=== PATIENT | male | born 1985 | race Hispanic/Latino ===

== ENCOUNTER 2017-03-15 04:47 | Inpatient (IN) | payer OTHER ==
--- NOTE | 2017-03-15 05:04 | C.PDOC ---
History Of Present Illness pt presents with chest pressure while trying to sleep. Dull aching discomfort, tightness occasionally radiating to the left arm. Has had similar episodes thruout the last 2-3 years, but tonight was worse. Speaking in complete sentences. No f/c/n/v . Denies any drug use Time Seen by Provider: 03/15/17 05:03 Chief Complaint (Nursing): Chest Pain History Per: Patient History/Exam Limitations: no limitations Onset/Duration Of Symptoms: Hrs Current Symptoms Are (Timing): Still Present Context: Other Severity: Mild Pain Scale Rating Of: 3 Quality: Dull, Tightness, Pressure Associated Symptoms: denies: Nausea, Dyspnea Modifying Factors: None Exacerbating Factors: None Alleviating Factors: None Recent travel outside of the [place]: No Additional History Per: Patient Past Medical History Reviewed: Historical Data, Nursing Documentation, Vital Signs Vital Signs: Last Vital Signs Temp 97.8 F 03/15/17 04:55 Pulse 78 03/15/17 04:55 Resp 19 03/15/17 04:55 BP 114/72 03/15/17 04:55 Pulse Ox 98 03/15/17 05:50 Family History: States: No Known Family Hx - Social History Hx Alcohol Use: Yes Hx Substance Use: No - Immunization History Hx Tetanus Toxoid Vaccination: No Hx Influenza Vaccination: No Hx Pneumococcal Vaccination: No Review Of Systems Constitutional: Negative for: Fever, Chills Eyes: Negative for: Redness ENT: Negative for: Throat Pain Cardiovascular: Positive for: Chest Pain Respiratory: Negative for: Shortness of Breath Gastrointestinal: Negative for: Nausea, Vomiting, Abdominal Pain Genitourinary: Negative for: Dysuria Musculoskeletal: Negative for: Back Pain Skin: Negative for: Rash Neurological: Negative for: Weakness Psych: Negative for: Anxiety Physical Exam - Physical Exam Appears: Non-toxic, No Acute Distress Skin: Warm, Dry Head: Normacephalic Eye(s): bilateral: Normal Inspection, PERRL Oral Mucosa: Moist Neck: Supple Chest: Symmetrical Cardiovascular: Rhythm Regular Respiratory: No Rales, No Rhonchi, No Wheezing Gastrointestinal/Abdominal: Soft, No Tenderness, No Distention Back: No CVA Tenderness Extremity: Normal ROM Extremity: Bilateral: Atraumatic, No Pedal Edema, Normal Color And Temperature Pulses: Left Dorsalis Pedis: Normal, Right Dorsalis Pedis: Normal Neurological/Psych: Oriented x3, Normal Speech, Normal Cognition Gait: Steady ED Course And Treatment - Laboratory Results Result Diagrams: 03/15/17 05:31 03/15/17 05:31 ECG: Interpreted By Me, Viewed By Me ECG Rhythm: Sinus Rhythm (78), Nonspecific Changes O2 Sat by Pulse Oximetry: 98 Pulse Ox Interpretation: Normal - Radiology CXR: Interpreted by Me, Viewed By Me CXR Interpretation: No: Infiltrates, Fracture, Pnemothorax Disposition Discussed With DrEsperanza: Abdelrahman Batista Comment: accepted the pt on his service and took over the care at 6:23 AM Doctor Will See Patient In The: ED Counseled Patient/Family Regarding: Studies Performed, Diagnosis - Disposition Disposition: HOSPITALIZED Disposition Time: 06:19 Condition: FAIR Forms: [facility] ([place]) - POA Present On Arrival: None - Clinical Impression Clinical Impression: Chest pain, NSTEMI (non-ST elevated myocardial infarction) Decision To Admit - Pt Status Changed To: Hospital Disposition Of: Inpatient - Admit Certification Admit to Inpatient:: After my assessment, the patient will require hospitalization for at least two midnights. This is because of the severity of symptoms shown, intensity of services needed, and/or the medical risk in this patient being treated as an outpatient. - InPatient: Physician Admission Certification: I certify that this patient requires 2 or more midnights of care for the following reason:: After my assessment, the patient will require hospitalization for at least two midnights. This is because of the severity of symptoms shown, intensity of services needed, and/or the medical risk in this patient being treated as an outpatient. - . Bed Request Type: Telemetry Patient Diagnosis: Chest pain, NSTEMI (non-ST elevated myocardial infarction)
[2017-03-15] MEDS ORDERED: Aspirin 325 mg EC Tablets PO STA ×2 (05:18→15:57)
[2017-03-15 05:34] LABS: BASO % 0.5 % (0.0-2.0); EOS # 0.1 K/uL (0.0-0.7); EOS % 0.7 % (0.0-4.0); HEMOGLOBIN 15.6 g/dL (12.0-18.0); LYMPH # 1.7 K/uL (1.0-4.3); LYMPH % 19.9 % (20.0-40.0); MEAN CELL VOLUME 86.8 fL (80.0-94.0); MEAN CORPUSCULAR HEMOGLOBIN 30.7 pg (27.0-31.0); MEAN CORPUSCULAR HGB CONC 35.4 g/dL (33.0-37.0); MONO # 1.2 K/uL (0.0-0.8); MONO % 13.7 % (0.0-10.0); NEUT # 5.6 K/uL (1.8-7.0); NEUT % 65.2 % (50.0-75.0); NRBC % 0.2 % (0.0-2.0); RBC 5.09 Mil/uL (4.40-5.90); RED CELL DISTRIBUTION WIDTH 12.6 % (11.5-14.5); WHITE BLOOD COUNT 8.6 K/uL (4.8-10.8)
[2017-03-15 05:41] LABS: INR 1.1; PROTHROMBIN TIME 11.8 SECONDS (9.7-12.2)
[2017-03-15] MEDS ORDERED: Aspirin 325 mg EC Tablets PO ONE (05:45)
[2017-03-15 05:57] LABS: ALB/GLOB RATIO 1.4 (1.0-2.1); ALBUMIN 4.3 g/dL (3.5-5.0); ALT/SGPT 35 U/L (21-72); AST/SGOT 35 U/L (17-59); BLOOD UREA NITROGEN 15 mg/dL (9-20); GFR AFRICAN-AMERICAN > 60; GFR NON-AFRICAN AMERICAN > 60
[2017-03-15 07:07] LABS: URINE BILIRUBIN NEGATIVE (NEGATIVE); URINE BLOOD NEGATIVE (NEGATIVE); URINE CLARITY Clear (Clear); URINE COLOR Yellow (YELLOW); URINE GLUCOSE (UA) NORMAL (Normal); URINE LEUKOCYTE ESTERASE NEG Leu/uL (Negative); URINE NITRATE NEGATIVE (NEGATIVE); URINE PROTEIN NEGATIVE (NEGATIVE)
[2017-03-15 07:26] LABS: BARBITURATES, UR NEGATIVE (NEGATIVE); BENZODIAZEPINES, UR NEGATIVE (NEGATIVE); OPIATES, UR NEGATIVE (NEGATIVE); PHENCYCLIDINE, UR NEGATIVE (NEGATIVE)
--- NOTE | 2017-03-15 07:45 | CP.PCM.HP ---
<HumairakristiRuth V - Last Filed: 03/15/17 22:13> Meds Allergies/Adverse Reactions: Allergies Allergy/AdvReac Type Severity Reaction Status Date / Time No Known Allergies Allergy Unverified 03/15/17 05:00 Results - Vital Signs Recent Vital Signs: Last Vital Signs Temp 97.5 F L 03/15/17 06:12 Pulse 76 03/15/17 06:12 Resp 16 03/15/17 06:12 BP 103/75 03/15/17 06:12 Pulse Ox 98 03/15/17 06:25 - Labs Result Diagrams: 03/15/17 05:31 03/15/17 05:31 Labs: Laboratory Results - last 24 hr 03/15/17 03/15/17 03/15/17 05:31 05:31 05:31 WBC 8.6 RBC 5.09 Hgb 15.6 Hct 44.2 MCV 86.8 MCH 30.7 MCHC 35.4 RDW 12.6 Plt Count 174 MPV 9.0 Neut % (Auto) 65.2 Lymph % (Auto) 19.9 L [place] % (Auto) 13.7 H Eos % (Auto) 0.7 Baso % (Auto) 0.5 Neut # 5.6 Lymph # 1.7 [place] # 1.2 H Eos # 0.1 Baso # 0.0 PT 11.8 INR 1.1 APTT 35 H D-Dimer, Quantitative Sodium 132 Potassium 3.9 Chloride 101 Carbon Dioxide 23 Anion Gap 12 BUN 15 Creatinine 1.1 Est GFR ( Amer) > 60 Est GFR (Non-Af Amer) > 60 Random Glucose 102 Calcium 9.0 Total Bilirubin 1.1 AST 35 ALT 35 Alkaline Phosphatase 60 Total Creatine Kinase CK-MB (Mass) Troponin I 1.2400 H* Total Protein 7.5 Albumin 4.3 Globulin 3.2 Albumin/Globulin Ratio 1.4 Triglycerides Cholesterol HDL Cholesterol Urine Color Urine Clarity Urine pH Ur Specific [place] Urine Protein Urine Glucose (UA) Urine Ketones Urine Blood Urine Nitrate Urine Bilirubin Urine Urobilinogen Ur Leukocyte Esterase Urine WBC (Auto) Urine RBC (Auto) Urine Opiates Screen Urine Methadone Screen Ur Barbiturates Screen Ur Phencyclidine Scrn Ur Amphetamines Screen U Benzodiazepines Scrn U Oth Cocaine Metabols U Cannabinoids Screen Influenza Typ A,B (EIA) 03/15/17 03/15/1718 06:56 06:56 07:07 WBC RBC Hgb Hct MCV MCH MCHC RDW Plt Count MPV Neut % (Auto) Lymph % (Auto) [place] % (Auto) Eos % (Auto) Baso % (Auto) Neut # Lymph # [place] # Eos # Baso # PT INR APTT D-Dimer, Quantitative < 200 Sodium Potassium Chloride Carbon Dioxide Anion Gap BUN Creatinine Est GFR ( Amer) Est GFR (Non-Af Amer) Random Glucose Calcium Total Bilirubin AST ALT Alkaline Phosphatase Total Creatine Kinase CK-MB (Mass) Troponin I Total Protein Albumin Globulin Albumin/Globulin Ratio Triglycerides Cholesterol HDL Cholesterol Urine Color Yellow Urine Clarity Clear Urine pH 5.0 Ur Specific [place] 1.023 Urine Protein Negative Urine Glucose (UA) Normal Urine Ketones Negative Urine Blood Negative Urine Nitrate Negative Urine Bilirubin Negative Urine Urobilinogen 2.0 Ur Leukocyte Esterase Neg Urine WBC (Auto) 2 Urine RBC (Auto) < 1 Urine Opiates Screen Negative Urine Methadone Screen Negative Ur Barbiturates Screen Negative Ur Phencyclidine Scrn Negative Ur Amphetamines Screen Negative U Benzodiazepines Scrn Negative U Oth Cocaine Metabols Positive H U Cannabinoids Screen Positive H Influenza Typ A,B (EIA) 03/15/17 03/15/17 07:07 07:46 WBC RBC Hgb Hct MCV MCH MCHC RDW Plt Count MPV Neut % (Auto) Lymph % (Auto) [place] % (Auto) Eos % (Auto) Baso % (Auto) Neut # Lymph # [place] # Eos # Baso # PT INR APTT D-Dimer, Quantitative Sodium Potassium Chloride Carbon Dioxide Anion Gap BUN Creatinine Est GFR ( Amer) Est GFR (Non-Af Amer) Random Glucose Calcium Total Bilirubin AST ALT Alkaline Phosphatase Total Creatine Kinase 171 H CK-MB (Mass) 6.50 H Troponin I 1.9800 H* Total Protein Albumin Globulin Albumin/Globulin Ratio Triglycerides 197 H Cholesterol 183 HDL Cholesterol 26 L Urine Color Urine Clarity Urine pH Ur Specific [place] Urine Protein Urine Glucose (UA) Urine Ketones Urine Blood Urine Nitrate Urine Bilirubin Urine Urobilinogen Ur Leukocyte Esterase Urine WBC (Auto) Urine RBC (Auto) Urine Opiates Screen Urine Methadone Screen Ur Barbiturates Screen Ur Phencyclidine Scrn Ur Amphetamines Screen U Benzodiazepines Scrn U Oth Cocaine Metabols U Cannabinoids Screen Influenza Typ A,B (EIA) Negative for flu a/b Assessment & Plan (1) Pericarditis Status: Acute (2) Cocaine abuse Status: Acute (3) Cannabis abuse Status: Acute (4) Prophylactic measure Status: Acute (5) Chest pain Status: Acute (6) NSTEMI (non-ST elevated myocardial infarction) Status: Acute Attending/Attestation - Attestation I have personally seen and examined this patient.: Yes I have fully participated in the care of the patient.: Yes I have reviewed all pertinent clinical information: Yes Notes (Text): Patient seen, examined, and case discussed with medical laboratory technologist. Patient seen in crisis bed 12 emergency room at approximately 7:30 AM. Patient reports he had chest pain overnight, substernal, radiating to left lower extremity which persisted for about at least an hour. Patient reports he woke up his dad reported that he needed to go to the hospital. Upon arrival to the emergency room, patient reports chest pain went away with aspirin. Patient reports he does use cocaine, last used 2 days ago about one bag. Patient reports he occasionally uses cocaine, "because he is bored" but does admit he hangs out with the wrong crowd.-Structure patient the cocaine leads to a monks many adverse side effects heart attacks and I have described to the patient that he's had a mini heart attack. Patient reports prominent paternal history of coronary artery disease, heart failure. EKG shows what appears to be ST elevations and reciprocal aVR indicative of pericarditis. Resident has spoken with cardiology front end mechanic and reviewed EKG with glass pulverizer equipment operator, believes is likely pericarditis secondary to patient's cocaine use. He will set patient up for cardiac cath tomorrow in the afternoon. Discussed with ICU given chest pain refractory to nitro, increased to Aspirin 650mg PO Q8H and add Colchine 0.5mg PO BID which improved chest pain. Patient stable for telemetry. Discussed admitting orders with medical laboratory technologist. Assessment/Plan 1) Pericarditis Nonstemi * Admit to telemetry * Cardiology: Dr. Burger contacted * NPO after midnight for cardiac cath tomorrow in the afternoon * Hgba1c, Lipid panel, and TSH, Free T4 ordered * UDS: positive for cocaine and weed * Patient given Aspirin 325mg PO X1, start Aspirin 650mg PO Q8H for pain for pericarditis and Colchine 0.5mg PO BID * Patient's pain did not improve with Nitropaste, nor with Nitro sublingual X3; but it resolved completely with aspirin * Refrain from beta-blockers given Cocaine use * start Plavix 75mg PO daily * Oxygen PRN * Start therapuetic Lovenox * Monitor ROMIs and EKGS, Q6-8 hours * Echocardiogram ordered * D-dimer: negative * pending influenza, unlikely * ESR, CRP, ASO, IVA, TSH ordered * Chest xray: no active disease 2) Cocaine Abuse Chest Pain * D-dimer: negative * low Probnp * + cocaine use * Refrain from beta-blockers 2) Prophylactic care * Therapeutic Lovenox * Pepcid 20mg PO bid * Gentle IV hydration <Ananth Mills - Last Filed: 03/15/17 23:08> History of Present Illness - History of Present Illness History of Present Illness: PGY2 Resident - Medicine H&P CC: chest pain with radiation to L arm HPI: This 32 year old M with no PMHx presents complaining of chest pain while trying to fall asleep last night. The pain started as a constant, dull /aching discomfort with subsequent radiation to the L arm. The L arm radiation lasted for roughly 1 hour last night, however the chest pain persisted into this morning, prompting him to come to the ED. He states it feels as if there is a 20lb weight on his chest. After receiving ASA 325 in the ED, he reports the chest pain resolved. He admits to using 1 bag of cocain roughly 2 days ago; he historically uses Cocain intranasal, 1bag every 2-3mo x7yrs. He is not currently in any pain and denies any additional acute complaints. ED Course: EKG reviewed with Dr. Burger, likely Pericarditis 2/2 [address] elevations and reciprocal aVR, incited by cocain use. Plan for cardiac cath in AM. Patient experienced a second episode of chest pain after eating lunch, not relieved with nitro. Chest pain resolved with administration of ASA 650mg. Patient accepted to ICU for tele monitoring. PMHx: none PSHx: none Meds: none Allergies: NKDA FamHx: Dad 58yo - CAD, stents x2; Mom at 36 2/2 ovarian CA; Grandpa - [place]. SocHx: tobacco 1.5packs/wk x 9years; ETOH 6-12 beers on the weekend; Cocain: 1bag every 2-3mo x7yrs PMD: none Review of Systems: -Gen: denies fever, chills, headache, lethargy, weakness. -HEENT: denies dizziness, change in vision, change in hearing, sore throat, dysphagia, nasal congestion, mucous. -Cardio: +chest pain with radiation to L arm; Denies palpitations, lower extremity edema, orthopnea. -Resp: denies cough, dyspnea, hemoptysis, wheezing, pain on inspiration. -GI: denies abdominal pain, nausea/vomiting, diarrhea/constipation, hematochezia , hematemesis. -: denies dysuria, urinary freq, incontinence, hematuria, change in urinary stream. -MSK: denies back pain, muscle weakness, radiating pain. -Skin: denies itching, rash, lesions. -Neuro: denies confusion, numbness, tingling, focal weakness, radicular pain, syncope. -Psych: denies anxiety, depression, H/I, S/I, hallucinations. Present on Admission - Present on Admission Any Indicators Present on Admission: No Past Patient History - Past Social History Smoking Status: Light Smoker < 10 Cigarettes Daily - PSYCHIATRIC Hx Substance Use: No - SURGICAL HISTORY Hx Surgeries: No Physical Exam - Constitutional Appears: Non-toxic, No Acute Distress (in pain) - Head Exam Head Exam: ATRAUMATIC, NORMAL INSPECTION - Eye Exam Eye Exam: EOMI, Normal appearance, PERRL Pupil Exam: NORMAL ACCOMODATION - ENT Exam ENT Exam: Mucous Membranes Moist - Neck Exam Neck exam: Positive for: Full Rom - Respiratory Exam Respiratory Exam: Clear to Auscultation Bilateral, NORMAL BREATHING PATTERN. absent: Chest Wall Tenderness, Rhonchi, Wheezes - Cardiovascular Exam Cardiovascular Exam: REGULAR RHYTHM, +S1, +S2. absent: Irregular Rhythm, JVD - GI/Abdominal Exam GI & Abdominal Exam: Normal Bowel Sounds, Soft. absent: Tenderness - Extremities Exam Extremities exam: Positive for: full ROM, normal inspection. Negative for: pedal edema, tenderness - Back Exam Back exam: NORMAL INSPECTION. absent: CVA tenderness (L), CVA tenderness (R), paraspinal tenderness - Neurological Exam Neurological exam: Alert, CN II-XII Intact, Oriented x3, Reflexes Normal - Psychiatric Exam Psychiatric exam: Normal Affect, Normal Mood - Skin Skin Exam: Dry, Intact, Normal Color, Warm Results - Vital Signs Recent Vital Signs: Last Vital Signs Temp 97.5 F L 03/15/17 06:12 Pulse 76 03/15/17 06:12 Resp 16 03/15/17 06:12 BP 103/75 03/15/17 06:12 Pulse Ox 98 03/15/17 06:25 - Labs Result Diagrams: 03/15/17 05:31 03/15/17 05:31 Labs: Laboratory Results - last 24 hr 03/15/17 03/15/17 03/15/17 05:31 05:31 05:31 WBC 8.6 RBC 5.09 Hgb 15.6 Hct 44.2 MCV 86.8 MCH 30.7 MCHC 35.4 RDW 12.6 Plt Count 174 MPV 9.0 Neut % (Auto) 65.2 Lymph % (Auto) 19.9 L [place] % (Auto) 13.7 H Eos % (Auto) 0.7 Baso % (Auto) 0.5 Neut # 5.6 Lymph # 1.7 [place] # 1.2 H Eos # 0.1 Baso # 0.0 PT 11.8 INR 1.1 APTT 35 H Sodium 132 Potassium 3.9 Chloride 101 Carbon Dioxide 23 Anion Gap 12 BUN 15 Creatinine 1.1 Est GFR ( Amer) > 60 Est GFR (Non-Af Amer) > 60 Random Glucose 102 Calcium 9.0 Total Bilirubin 1.1 AST 35 ALT 35 Alkaline Phosphatase 60 Troponin I 1.2400 H* Total Protein 7.5 Albumin 4.3 Globulin 3.2 Albumin/Globulin Ratio 1.4 Urine Color Urine Clarity Urine pH Ur Specific [place] Urine Protein Urine Glucose (UA) Urine Ketones Urine Blood Urine Nitrate Urine Bilirubin Urine Urobilinogen Ur Leukocyte Esterase Urine WBC (Auto) Urine RBC (Auto) Urine Opiates Screen Urine Methadone Screen Ur Barbiturates Screen Ur Phencyclidine Scrn Ur Amphetamines Screen U Benzodiazepines Scrn 03/15/17 03/15/17 06:56 06:56 WBC RBC Hgb Hct MCV MCH MCHC RDW Plt Count MPV Neut % (Auto) Lymph % (Auto) [place] % (Auto) Eos % (Auto) Baso % (Auto) Neut # Lymph # [place] # Eos # Baso # PT INR APTT Sodium Potassium Chloride Carbon Dioxide Anion Gap BUN Creatinine Est GFR ( Amer) Est GFR (Non-Af Amer) Random Glucose Calcium Total Bilirubin AST ALT Alkaline Phosphatase Troponin I Total Protein Albumin Globulin Albumin/Globulin Ratio Urine Color Yellow Urine Clarity Clear Urine pH 5.0 Ur Specific [place] 1.023 Urine Protein Negative Urine Glucose (UA) Normal Urine Ketones Negative Urine Blood Negative Urine Nitrate Negative Urine Bilirubin Negative Urine Urobilinogen 2.0 Ur Leukocyte Esterase Neg Urine WBC (Auto) 2 Urine RBC (Auto) < 1 Urine Opiates Screen Negative Urine Methadone Screen Negative Ur Barbiturates Screen Negative Ur Phencyclidine Scrn Negative Ur Amphetamines Screen Negative U Benzodiazepines Scrn Negative Assessment & Plan - Assessment and Plan (Free Text) Assessment: Pericarditis / NSTEMI / Chest Pain Note: EKG reviewed with Dr. Burger, likely Pericarditis 2/2 ST elevations and reciprocal aVR, incited by cocain use. Plan for cardiac cath in AM. Patient experienced a second episode of chest pain after eating lunch, not relieved with nitro. Chest pain resolved with administration of ASA 650mg. Patient accepted to ICU for tele monitoring -Cardio consult, Dr. Burger, f/u recs. - plan for cardiac cath 03/16 at 14:30 -EKG reviewed with Dr. Burger, likely Pericarditis 2/2 ST elevations and reciprocal aVR, incited by cocain use -CXR negative -Beta oscar C/I 2/2 cocaine use -Troponin positive x4 (worsening) / CKMB positive x3 (worsening) -UDS +cocain / +marijuana -Start: Plavix 75mg PO daily; therapuetic Lovenox; -oxygen prn -Ddimer negative ProBNP negative f/u Hgba1c, Lipid panel, and TSH, Free T4, ESR, CRP, ASO, IVA f/u Echo f/u influenza Cocaine Abuse -last used 2 days ago -Beta oscar C/I 2/2 cocaine use Prophylaxis Lovenox 75mg SC Q12 Pepcid 20mg PO bid NS 0.9 at 80cc/hr SCDs - Date & Time Date: 03/15/17 Time: 07:43
[2017-03-15 08:37] LABS: CK-MB 6.5 ng/mL (0.0-3.38); TROPONIN I 1.98 ng/mL (0.00-0.120)
[2017-03-15] MEDS: Sodium Chloride 0.9% 1,000 ML IV SCH ×2 (09:02→21:22)
[2017-03-15] MEDS ORDERED: Nitroglycerin 2% Ointment Foilpak UD TOP ONE (09:13)
[2017-03-15] MEDS ORDERED: Enoxaparin 80 mg Syringe ONE (09:14)
[2017-03-15] MEDS: Enoxaparin 80 mg Syringe SC SCH ×2 (09:43→22:28)
[2017-03-15] MEDS ORDERED: Nitroglycerin 2% Ointment Foilpak UD TOP SCH (10:00)
--- NOTE | 2017-03-15 10:09 | RAD ---
PROCEDURE: CHEST RADIOGRAPH, 1 VIEW HISTORY: chest pain COMPARISON: None available. FINDINGS: LUNGS: Clear. PLEURA: No pneumothorax or pleural fluid seen. CARDIOVASCULAR: Normal. OSSEOUS STRUCTURES: No significant abnormalities. VISUALIZED UPPER ABDOMEN: Normal. OTHER FINDINGS: None. IMPRESSION: No active disease.
[2017-03-15 12:22] LABS: CK-MB 5.92 ng/mL (0.0-3.38)
[2017-03-15 12:24] LABS: TROPONIN I 1.94 ng/mL (0.00-0.120)
[2017-03-15 17:34] LABS: CK-MB 11.1 ng/mL (0.0-3.38); TROPONIN I 3.04 ng/mL (0.00-0.120)
--- NOTE | 2017-03-15 22:22 | CP.PCM.CON ---
History of Present Illness - History of Present Illness History of Present Illness: 32 male admitted for Non exertional chest pain Abnormal troponin Pericarditis Vs. Non STEMI For Cath tomorrow Plan d/w medical team Past Patient History - Past Medical History & Family History Past Medical History?: No - Past Social History Smoking Status: Light Smoker < 10 Cigarettes Daily - MUSCULOSKELETAL/RHEUMATOLOGICAL Hx Falls: No - PSYCHIATRIC Hx Psychophysiologic Disorder: No Hx Substance Use: Yes - SURGICAL HISTORY Hx Surgeries: No - ANESTHESIA Hx Anesthesia: No Meds Allergies/Adverse Reactions: Allergies Allergy/AdvReac Type Severity Reaction Status Date / Time No Known Allergies Allergy Unverified 03/15/17 05:00 - Medications Medications: Current Medications Acetaminophen (Tylenol 325mg Tab) 650 mg PO Q6 PRN PRN Reason: Pain, Mild (1-3) Last Admin: 03/15/17 14:45 Dose: 650 mg Aspirin (Aspirin Chewable) 81 mg PO DAILY [facility] Last Admin: 03/15/17 09:43 Dose: 81 mg Aspirin (Aspirin) 650 mg PO Q8H [facility] Last Admin: 03/15/17 21:20 Dose: 650 mg Clopidogrel Bisulfate (Plavix) 75 mg PO DAILY [facility] Last Admin: 03/15/17 09:43 Dose: 75 mg Colchicine (Colocrys) 0.6 mg PO BID [facility] Last Admin: 03/15/17 18:01 Dose: 0.6 mg Enoxaparin Sodium (Lovenox) 75 mg SC Q12 [facility] Last Admin: 03/15/17 09:43 Dose: 75 mg Sodium Chloride (Sodium Chloride 0.9%) 1,000 mls @ 80 mls/hr IV .[id number] [facility] Stop: 03/16/17 09:01 Last Admin: 03/15/17 21:22 Dose: 80 mls/hr Lactulose (Enulose) 20 gm PO [facility] Last Admin: 03/15/17 21:20 Dose: Not Given Rosuvastatin Calcium (Crestor) 10 mg PO [facility] Last Admin: 03/15/17 21:21 Dose: 10 mg Results - Vital Signs Recent Vital Signs: Last Vital Signs Temp 98.3 F 03/15/17 19:00 Pulse 69 03/15/17 20:00 Resp 17 03/15/17 19:00 BP 103/71 03/15/17 19:00 Pulse Ox 98 03/15/17 19:00 - Labs Result Diagrams: 03/15/17 05:31 03/15/17 05:31 Labs: Laboratory Results - last 24 hr 03/15/17 03/15/17 03/15/17 05:31 05:31 05:31 WBC 8.6 RBC 5.09 Hgb 15.6 Hct 44.2 MCV 86.8 MCH 30.7 MCHC 35.4 RDW 12.6 Plt Count 174 MPV 9.0 Neut % (Auto) 65.2 Lymph % (Auto) 19.9 L [place] % (Auto) 13.7 H Eos % (Auto) 0.7 Baso % (Auto) 0.5 Neut # 5.6 Lymph # 1.7 Jefferson # 1.2 H Eos # 0.1 Baso # 0.0 PT 11.8 INR 1.1 APTT 35 H D-Dimer, Quantitative Sodium 132 Potassium 3.9 Chloride 101 Carbon Dioxide 23 Anion Gap 12 BUN 15 Creatinine 1.1 Est GFR ( Amer) > 60 Est GFR (Non-Af Amer) > 60 Random Glucose 102 Calcium 9.0 Total Bilirubin 1.1 AST 35 ALT 35 Alkaline Phosphatase 60 Total Creatine Kinase CK-MB (Mass) Troponin I 1.2400 H* NT-Pro-B Natriuret Pep Total Protein 7.5 Albumin 4.3 Globulin 3.2 Albumin/Globulin Ratio 1.4 Triglycerides Cholesterol LDL Cholesterol Direct HDL Cholesterol Free T4 TSH 3rd Generation Urine Color Urine Clarity Urine pH Ur Specific [place] Urine Protein Urine Glucose (UA) Urine Ketones Urine Blood Urine Nitrate Urine Bilirubin Urine Urobilinogen Ur Leukocyte Esterase Urine WBC (Auto) Urine RBC (Auto) Urine Opiates Screen Urine Methadone Screen Ur Barbiturates Screen Ur Phencyclidine Scrn Ur Amphetamines Screen U Benzodiazepines Scrn U Oth Cocaine Metabols U Cannabinoids Screen Influenza Typ A,B (EIA) 03/15/17 03/15/17 03/15/17 06:56 06:56 07:07 WBC RBC Hgb Hct MCV MCH MCHC RDW Plt Count MPV Neut % (Auto) Lymph % (Auto) Jefferson % (Auto) Eos % (Auto) Baso % (Auto) Neut # Lymph # Jefferson # Eos # Baso # PT INR APTT D-Dimer, Quantitative < 200 Sodium Potassium Chloride Carbon Dioxide Anion Gap BUN Creatinine Est GFR ( Amer) Est GFR (Non-Af Amer) Random Glucose Calcium Total Bilirubin AST ALT Alkaline Phosphatase Total Creatine Kinase CK-MB (Mass) Troponin I NT-Pro-B Natriuret Pep Total Protein Albumin Globulin Albumin/Globulin Ratio Triglycerides Cholesterol LDL Cholesterol Direct HDL Cholesterol Free T4 TSH 3rd Generation Urine Color Yellow Urine Clarity Clear Urine pH 5.0 Ur Specific [place] 1.023 Urine Protein Negative Urine Glucose (UA) Normal Urine Ketones Negative Urine Blood Negative Urine Nitrate Negative Urine Bilirubin Negative Urine Urobilinogen 2.0 Ur Leukocyte Esterase Neg Urine WBC (Auto) 2 Urine RBC (Auto) < 1 Urine Opiates Screen Negative Urine Methadone Screen Negative Ur Barbiturates Screen Negative Ur Phencyclidine Scrn Negative Ur Amphetamines Screen Negative U Benzodiazepines Scrn Negative U Oth Cocaine Metabols Positive H U Cannabinoids Screen Positive H Influenza Typ A,B (EIA) 03/15/17 03/15/17 03/15/17 07:07 07:46 08:52 WBC RBC Hgb Hct MCV MCH MCHC RDW Plt Count MPV Neut % (Auto) Lymph % (Auto) Jefferson % (Auto) Eos % (Auto) Baso % (Auto) Neut # Lymph # Jefferson # Eos # Baso # PT INR APTT D-Dimer, Quantitative Sodium Potassium Chloride Carbon Dioxide Anion Gap BUN Creatinine Est GFR ( Amer) Est GFR (Non-Af Amer) Random Glucose Calcium Total Bilirubin AST ALT Alkaline Phosphatase Total Creatine Kinase 171 H CK-MB (Mass) 6.50 H Troponin I 1.9800 H* NT-Pro-B Natriuret Pep 309 Total Protein Albumin Globulin Albumin/Globulin Ratio Triglycerides 197 H Cholesterol 183 LDL Cholesterol Direct 107 HDL Cholesterol 26 L Free T4 0.92 TSH 3rd Generation 0.77 Urine Color Urine Clarity Urine pH Ur Specific [place] Urine Protein Urine Glucose (UA) Urine Ketones Urine Blood Urine Nitrate Urine Bilirubin Urine Urobilinogen Ur Leukocyte Esterase Urine WBC (Auto) Urine RBC (Auto) Urine Opiates Screen Urine Methadone Screen Ur Barbiturates Screen Ur Phencyclidine Scrn Ur Amphetamines Screen U Benzodiazepines Scrn U Oth Cocaine Metabols U Cannabinoids Screen Influenza Typ A,B (EIA) Negative for flu a/b 03/15/17 03/15/17 11:45 16:56 WBC RBC Hgb Hct MCV MCH MCHC RDW Plt Count MPV Neut % (Auto) Lymph % (Auto) Jefferson % (Auto) Eos % (Auto) Baso % (Auto) Neut # Lymph # Jefferson # Eos # Baso # PT INR APTT D-Dimer, Quantitative Sodium Potassium Chloride Carbon Dioxide Anion Gap BUN Creatinine Est GFR ( Amer) Est GFR (Non-Af Amer) Random Glucose Calcium Total Bilirubin AST ALT Alkaline Phosphatase Total Creatine Kinase 155 237 H CK-MB (Mass) 5.92 H 11.1 H Troponin I 1.9400 H* 3.0400 H* NT-Pro-B Natriuret Pep Total Protein Albumin Globulin Albumin/Globulin Ratio Triglycerides Cholesterol LDL Cholesterol Direct HDL Cholesterol Free T4 TSH 3rd Generation Urine Color Urine Clarity Urine pH Ur Specific [place] Urine Protein Urine Glucose (UA) Urine Ketones Urine Blood Urine Nitrate Urine Bilirubin Urine Urobilinogen Ur Leukocyte Esterase Urine WBC (Auto) Urine RBC (Auto) Urine Opiates Screen Urine Methadone Screen Ur Barbiturates Screen Ur Phencyclidine Scrn Ur Amphetamines Screen U Benzodiazepines Scrn U Oth Cocaine Metabols U Cannabinoids Screen Influenza Typ A,B (EIA)
[2017-03-16 06:26] LABS: BASO % 0.5 % (0.0-2.0); EOS # 0.1 K/uL (0.0-0.7); HEMOGLOBIN 14.7 g/dL (12.0-18.0); LYMPH # 2.2 K/uL (1.0-4.3); LYMPH % 33.8 % (20.0-40.0); MEAN CELL VOLUME 88.7 fL (80.0-94.0); MEAN CORPUSCULAR HEMOGLOBIN 30.8 pg (27.0-31.0); MEAN CORPUSCULAR HGB CONC 34.7 g/dL (33.0-37.0); MEAN PLATELET VOLUME 10.3 fL (7.2-11.7); MONO % 16.1 % (0.0-10.0); NEUT % 47.6 % (50.0-75.0); NRBC % 0.1 % (0.0-2.0); RBC 4.78 Mil/uL (4.40-5.90); RED CELL DISTRIBUTION WIDTH 12.8 % (11.5-14.5); WHITE BLOOD COUNT 6.4 K/uL (4.8-10.8)
[2017-03-16 06:32] LABS: ALB/GLOB RATIO 1.3 (1.0-2.1); ALBUMIN 3.7 g/dL (3.5-5.0); ALT/SGPT 35 U/L (21-72); AST/SGOT 57 U/L (17-59); BLOOD UREA NITROGEN 13 mg/dL (9-20); CALCIUM 8.4 mg/dl (8.6-10.4); GFR AFRICAN-AMERICAN > 60; GFR NON-AFRICAN AMERICAN > 60; MAGNESIUM 1.7 mg/dL (1.6-2.3)
--- NOTE | 2017-03-16 09:32 | CP.PCM.PN ---
Subjective - Date & Time of Evaluation Date of Evaluation: 03/16/17 Time of Evaluation: 09:15 - Subjective Subjective: Hospitalist Progress Note Patient was seen and examined at 9:15 AM 03/16/17 ICU BED #2 32 year old male who was admitted on 03/15/17 after experiencing chest pain the night before located in the substernal area. Chest Pain resolved after ASA in the ER. He has a history of Cocaine Abuse and tested positive for it via UDS. EKG showed questionable ST elevations and reciprocal aVR. His troponins were elevated. [employer] Clerk Dr. Burger is planning for Cardiac Catheterization this morning 03/16/17. Upon FULL ROS: NO chest pain NO palpitations NO SOB/Cough/Wheezing NO Soreness in Throat NO abdominal pain NO n/v/d/c: last normal bowel movement was 03/15/17 morning NO burning/pain with urination NO paresthesias NO headaches NO new changes in vision NO new changes in hearing NO edema Exam: General: AAOX3, NAD HEENT: NCA, EOMI, PERRLA, NO pharyngeal erythema/exudate, NO cervical/ supraclavicular/submandibular lymphadenopathy, NO thyromegaly, Nasal Turbinates are moist/nonerythematous/nonedematous Cardio: NS1 and NS2, NO M/R/G Resp: CTA B/L, NO R/R/W GI: BSx4, Soft, NT, ND, NO HSM, NO guarding/rebound tenderness Ext: Capillary Refill is 2 seconds, NO edema, Pulses are strong and equal, NO cyanosis/discoloration Neuro: CN II through XII are grossly intact 1) Pericarditis: ASA, Plavix, Lovenox, Crestor, Colchicine. FOR CARDIAC CATH later today with Dr. Burger 2) Hx Cocaine Abuse Thai Jose D.O. Objective - Vital Signs/Intake and Output Vital Signs (last 24 hours): Temp Pulse Resp BP Pulse Ox 97.8 F 57 L 18 93/57 L 98 03/16/17 08:00 03/16/17 08:00 03/16/17 08:00 03/16/17 08:00 03/16/17 08:00 Intake and Output: 03/16/17 03/16/17 06:59 18:59 Intake Total 1120 Output Total 1200 Balance -80 - Medications Medications: Current Medications Acetaminophen (Tylenol 325mg Tab) 650 mg PO Q6 PRN PRN Reason: Pain, Mild (1-3) Last Admin: 03/15/17 14:45 Dose: 650 mg Aspirin (Aspirin Chewable) 81 mg PO DAILY [facility] Last Admin: 03/15/17 09:43 Dose: 81 mg Aspirin (Aspirin) 650 mg PO Q8H [facility] Last Admin: 03/16/17 06:13 Dose: 650 mg Clopidogrel Bisulfate (Plavix) 75 mg PO DAILY [facility] Last Admin: 03/15/17 09:43 Dose: 75 mg Colchicine (Colocrys) 0.6 mg PO BID [facility] Last Admin: 03/15/17 18:01 Dose: 0.6 mg Enoxaparin Sodium (Lovenox) 75 mg SC Q12 [facility] Last Admin: 03/15/17 22:28 Dose: 75 mg Lactulose (Enulose) 20 gm PO HS [facility] Last Admin: 03/15/17 21:20 Dose: Not Given Rosuvastatin Calcium (Crestor) 10 mg PO HS [facility] Last Admin: 03/15/17 21:21 Dose: 10 mg - Labs Labs: 03/16/17 06:06 03/16/17 06:06 PT 11.8 SECONDS (9.7-12.2) 03/15/17 05:31 INR 1.1 03/15/17 05:31 APTT 35 SECONDS (21-34) H 03/15/17 05:31
[2017-03-16 10:25] LABS: ANTI SREPTOLYSIN O POSITIVE (NEGATIVE); ASO TITER =>200 IU/ML (NEGATIVE)
[2017-03-16 10:26] LABS: ANA PATTERN SPECKLED
[2017-03-16] MEDS ORDERED: Nitroglycerin 50mg in D5W 50 MG/250 ML BOTTLE IV ONE (11:36)
[2017-03-16] MEDS ORDERED: Midazolam 2 MG/2 ML VIAL ONE (11:36)
[2017-03-16] MEDS: Enoxaparin 80 mg Syringe SC SCH ×2 (12:41→22:28)
[2017-03-16] MEDS: Sodium Chloride 0.9% 1,000 ML IV SCH ×2 (15:30→23:44)
--- NOTE | 2017-03-16 18:55 | CP.PCM.PN ---
<Mayo Schmitt - Last Filed: 03/16/17 19:01> Subjective - Date & Time of Evaluation Date of Evaluation: 03/16/17 Time of Evaluation: 06:52 - Subjective Subjective: Patient seen and examined at bedside. Per nursing no acute events occurred overnight. The patient no longer has the chest pain he initially reported. The patient is scheduled for a Cardiac cath this morning. The patient denies any chest pain, shortness of breath, fevers, chills, abdominal pain, vomiting, changes in vision, sore throat, headaches, or any other complaints. Objective - Vital Signs/Intake and Output Vital Signs (last 24 hours): Temp Pulse Resp BP Pulse Ox 97.8 F 61 18 121/74 99 03/16/17 08:00 03/16/17 18:00 03/16/17 15:30 03/16/17 15:30 03/16/17 15:30 Intake and Output: 03/16/17 03/16/17 06:59 18:59 Intake Total 1120 400 Output Total 1200 1000 Balance -80 -600 - Medications Medications: Current Medications Acetaminophen (Tylenol 325mg Tab) 650 mg PO Q6 PRN PRN Reason: Pain, Mild (1-3) Last Admin: 03/15/17 14:45 Dose: 650 mg Aspirin (Aspirin Chewable) 81 mg PO DAILY [facility] Last Admin: 03/16/17 12:41 Dose: Not Given Aspirin (Aspirin) 650 mg PO Q8H [facility] Last Admin: 03/16/17 15:30 Dose: 650 mg Clopidogrel Bisulfate (Plavix) 75 mg PO DAILY [facility] Last Admin: 03/16/17 16:36 Dose: 75 mg Colchicine (Colocrys) 0.6 mg PO BID [facility] Last Admin: 03/16/17 17:38 Dose: 0.6 mg Enoxaparin Sodium (Lovenox) 75 mg SC Q12 [facility] Last Admin: 03/16/17 12:41 Dose: Not Given Sodium Chloride (Sodium Chloride 0.9%) 1,000 mls @ 100 mls/hr IV .Q10H [facility] Stop: 03/17/17 01:00 Last Admin: 03/16/17 15:30 Dose: 100 mls/hr Lactulose (Enulose) 20 gm PO HS [facility] Last Admin: 03/15/17 21:20 Dose: Not Given Rosuvastatin Calcium (Crestor) 10 mg PO HS [facility] Last Admin: 03/15/17 21:21 Dose: 10 mg - Labs Labs: 03/16/17 06:06 03/16/17 06:06 PT 11.8 SECONDS (9.7-12.2) 03/15/17 05:31 INR 1.1 03/15/17 05:31 APTT 35 SECONDS (21-34) H 03/15/17 05:31 - Head Exam Head Exam: ATRAUMATIC, NORMAL INSPECTION, NORMOCEPHALIC - Eye Exam Eye Exam: EOMI, Normal appearance, PERRL. absent: Periorbital tenderness Pupil Exam: NORMAL ACCOMODATION, PERRL. absent: Irregular, Unequal - ENT Exam ENT Exam: Mucous Membranes Moist, Normal Oropharynx - Neck Exam Neck Exam: absent: Lymphadenopathy, Thyromegaly - Respiratory Exam Respiratory Exam: Clear to Ausculation Bilateral, NORMAL BREATHING PATTERN. absent: Prolonged Expiratory Phase, Respiratory Distress - Cardiovascular Exam Cardiovascular Exam: REGULAR RHYTHM, RRR, +S1, +S2. absent: Gallop, Rubs - GI/Abdominal Exam GI & Abdominal Exam: Soft, Normal Bowel Sounds - Extremities Exam Extremities Exam: Full ROM. absent: Joint Swelling, Pedal Edema, Tenderness - Back Exam Back Exam: NORMAL INSPECTION. absent: CVA tenderness (L), CVA tenderness (R), paraspinal tenderness - Neurological Exam Neurological Exam: Alert, Awake, CN II-XII Intact, Normal Gait, Oriented x3 - Psychiatric Exam Psychiatric exam: Normal Affect, Normal Mood. absent: Depressed - Skin Skin Exam: Dry, Intact Assessment and Plan - Assessment and Plan (Free Text) Plan: Pericarditis / NSTEMI / Chest Pain Note: EKG reviewed with Dr. Burger, likely Pericarditis 2/[address] elevations and reciprocal aVR, incited by cocain use. Plan for cardiac cath in AM. Patient experienced a second episode of chest pain after eating lunch, not relieved with nitro. Chest pain resolved with administration of ASA 650mg. -Cardio consult, Dr. Burger, rec's appreciated. Will f/u tomorrow for final rec's. -EKG reviewed with Dr. Burger, likely Pericarditis 2/2 ST elevations and reciprocal aVR, incited by cocain use -CXR negative -Avoid Beta oscar C/I 2/2 cocaine use -Continue Colcichine. -Continue Rovustatin. -Troponin positive x4 (worsening) / CKMB positive x3 (worsening) -UDS +cocain / +marijuana -Continue Plavix 75mg PO daily; therapuetic Lovenox; -oxygen prn -Ddimer negative ProBNP negative HDL:26, LDL: 101, Cholesterol:183, Triglycerides:197 Cardiac cath done. Official read still pending. Echo taken. Official read still pending. Influenza negative. Cocaine Abuse -last used 2 days ago -Avoid Beta oscar C/I 2/ cocaine use Prophylaxis Lovenox 75mg SC Q12 Pepcid 20mg PO bid NS 0.9 at 80cc/hr SCDs <Thai Jose - Last Filed: 03/16/17 19:36> Objective - Vital Signs/Intake and Output Vital Signs (last 24 hours): Temp Pulse Resp BP Pulse Ox 97.8 F 61 19 120/72 99 03/16/17 08:00 03/16/17 18:00 03/16/17 16:00 03/16/17 16:00 03/16/17 16:00 Intake and Output: 03/16/17 03/17/17 18:59 06:59 Intake Total 400 100 Output Total 1000 Balance -600 100 - Medications Medications: Current Medications Acetaminophen (Tylenol 325mg Tab) 650 mg PO Q6 PRN PRN Reason: Pain, Mild (1-3) Last Admin: 03/15/17 14:45 Dose: 650 mg Aspirin (Aspirin Chewable) 81 mg PO DAILY [facility] Last Admin: 03/16/17 12:41 Dose: Not Given Aspirin (Aspirin) 650 mg PO Q8H [facility] Last Admin: 03/16/17 15:30 Dose: 650 mg Clopidogrel Bisulfate (Plavix) 75 mg PO DAILY [facility] Last Admin: 03/16/17 16:36 Dose: 75 mg Colchicine (Colocrys) 0.6 mg PO BID [facility] Last Admin: 03/16/17 17:38 Dose: 0.6 mg Enoxaparin Sodium (Lovenox) 75 mg SC Q12 [facility] Last Admin: 03/16/17 12:41 Dose: Not Given Sodium Chloride (Sodium Chloride 0.9%) 1,000 mls @ 100 mls/hr IV .Q10H [facility] Stop: 03/17/17 01:00 Last Admin: 03/16/17 15:30 Dose: 100 mls/hr Lactulose (Enulose) 20 gm PO HS [facility] Last Admin: 03/15/17 21:20 Dose: Not Given Rosuvastatin Calcium (Crestor) 10 mg PO HS [facility] Last Admin: 03/15/17 21:21 Dose: 10 mg - Labs Labs: 03/16/17 06:06 03/16/17 06:06 PT 11.8 SECONDS (9.7-12.2) 03/15/17 05:31 INR 1.1 03/15/17 05:31 APTT 35 SECONDS (21-34) H 03/15/17 05:31 Attending/Attestation - Attestation I have personally seen and examined this patient.: Yes I have fully participated in the care of the patient.: Yes I have reviewed all pertinent clinical information, including history, physical exam and plan: Yes Notes (Text): 03/16/17 19:35 Please also see my note from earlier today. Exam, assessment and plan were gone over with the resident. Thai Jose D.O.
--- NOTE | 2017-03-16 21:54 | CP.PCM.PN ---
Subjective - Date & Time of Evaluation Date of Evaluation: 03/16/17 Time of Evaluation: 21:52 - Subjective Subjective: Patient s/p Cath: Normal Coronaries Normal EF Chest pain/Positive Trops likely secondary to perimyocarditis Recommend ASA 325 mg po daily for 6 weeks Plus Tylenol PRN Objective - Vital Signs/Intake and Output Vital Signs (last 24 hours): Temp Pulse Resp BP Pulse Ox 98 F 68 18 98/59 L 100 03/16/17 20:00 03/16/17 20:00 03/16/17 20:00 03/16/17 20:00 03/16/17 20:00 Intake and Output: 03/16/17 03/17/17 18:59 06:59 Intake Total 400 300 Output Total 1000 0 Balance -600 300 - Medications Medications: Current Medications Acetaminophen (Tylenol 325mg Tab) 650 mg PO Q6 PRN PRN Reason: Pain, Mild (1-3) Last Admin: 03/15/17 14:45 Dose: 650 mg Aspirin (Aspirin Chewable) 81 mg PO DAILY [facility] Last Admin: 03/16/17 12:41 Dose: Not Given Aspirin (Aspirin) 650 mg PO Q8H [facility] Last Admin: 03/16/17 15:30 Dose: 650 mg Clopidogrel Bisulfate (Plavix) 75 mg PO DAILY [facility] Last Admin: 03/16/17 16:36 Dose: 75 mg Colchicine (Colocrys) 0.6 mg PO BID [facility] Last Admin: 03/16/17 17:38 Dose: 0.6 mg Enoxaparin Sodium (Lovenox) 75 mg SC Q12 [facility] Last Admin: 03/16/17 12:41 Dose: Not Given Sodium Chloride (Sodium Chloride 0.9%) 1,000 mls @ 100 mls/hr IV .Q10H [facility] Stop: 03/17/17 01:00 Last Admin: 03/16/17 15:30 Dose: 100 mls/hr Lactulose (Enulose) 20 gm PO [facility] Last Admin: 03/15/17 21:20 Dose: Not Given Rosuvastatin Calcium (Crestor) 10 mg PO HS [facility] Last Admin: 03/15/17 21:21 Dose: 10 mg - Labs Labs: 03/16/17 06:06 03/16/17 06:06 PT 11.8 SECONDS (9.7-12.2) 03/15/17 05:31 INR 1.1 03/15/17 05:31 APTT 35 SECONDS (21-34) H 03/15/17 05:31
[2017-03-17 01:55] VITALS: RESP 20
--- NOTE | 2017-03-17 06:22 | CARD ---
APPROVED REPORT EXAM: Two-dimensional and M-mode echocardiogram with Doppler and color Doppler. Other Information Quality : GoodRhythm : INDICATION Chest Pain Non STEMI COCAINE 2D DIMENSIONS IVSd0.8 (0.7-1.1cm)LVDd4.2 (3.9-5.9cm) PWd1.3 (0.7-1.1cm)IVSs1.3 (0.8-1.2cm) LVDs3.1 (2.5-4.0cm)FS (%) 26.1 % PWs1.2 (0.8-1.2cm)LVEF (%)51.6 (>50%) M-Mode DIMENSIONS Left Atrium (MM)4.34 (2.5-4.0cm)IVSd2.13 (0.7-1.1cm) Aortic Root3.26 (2.2-3.7cm)LVDd5.45 (4.0-5.6cm) Aortic Cusp Exc.2.01 (1.5-2.0cm)PWd1.35 (0.7-1.1cm) FS (%) 32 %LVDs3.68 (2.0-3.8cm) LVEF (%)60 (>50%) Mitral Valve MV E Qssmsppd53.3cm/sMV A Yhthqorr19.6cm/sE/A ratio1.6 TDI E/Lateral E'0.0E/Medial E'0.0 Tricuspid Valve TR Peak [id number] Peak [id number] LEFT VENTRICLE The left ventricle is normal size. There is normal left ventricular wall thickness. Left ventricle systolic function is normal. The Ejection Fraction is 60-65%. There is normal LV segmental wall motion. The left ventricular diastolic function is normal. RIGHT VENTRICLE The right ventricle is normal size. There is normal right ventricular wall thickness. The right ventricular systolic function is normal. ATRIA The left atrium size is normal. The right atrium size is normal. The interatrial septum is intact with no evidence for an atrial septal defect. AORTIC VALVE The aortic valve is normal in structure. No aortic regurgitation is present. There is no aortic valvular stenosis. MITRAL VALVE The mitral valve is normal in structure. There is no evidence of mitral valve prolapse. There is no mitral valve stenosis. Mitral regurgitation is mild. TRICUSPID VALVE The tricuspid valve is normal in structure. There is mild tricuspid regurgitation. Right ventricular systolic pressure is estimated at less than 30 mmHg. There is no pulmonary hypertension. PULMONIC VALVE The pulmonic valve is not well visualized. There is no pulmonic valvular regurgitation. GREAT VESSELS The aortic root is normal in size. PERICARDIAL EFFUSION There is no significant pericardial effusion. <Conclusion> Left ventricle systolic function is normal. The Ejection Fraction is 60-65%. No aortic regurgitation is present. Mitral regurgitation is mild. There is mild tricuspid regurgitation. There is no pulmonary hypertension. There is no pulmonic valvular regurgitation.
[2017-03-17 08:13] VITALS: O2SAT 94
[2017-03-17 08:14] VITALS: BP 107/62; TEMP 97.7
[2017-03-17] MEDS ORDERED: Aspirin 325 mg EC Tablets PO SCH (10:00)
--- NOTE | 2017-03-17 10:40 | CP.PCM.DIS ---
Provider - Provider Date of Admission: 03/15/17 06:21 Attending physician: Thai Jose MD Primary care physician: PMD:None Consults: Cardiology: Dr. Burger Time Spent in preparation of Discharge (in minutes): 45 Hospital Course - Lab Results Lab Results: Most Recent Lab Values WBC 6.4 K/uL (4.8-10.8) 03/16/17 06:06 RBC 4.78 Mil/uL (4.40-5.90) 03/16/17 06:06 Hgb 14.7 g/dL (12.0-18.0) 03/16/17 06:06 Hct 42.5 % (35.0-51.0) 03/16/17 06:06 MCV 88.7 fL (80.0-94.0) 03/16/17 06:06 MCH 30.8 pg (27.0-31.0) 03/16/17 06:06 MCHC 34.7 g/dL (33.0-37.0) 03/16/17 06:06 RDW 12.8 % (11.5-14.5) 03/16/17 06:06 Plt Count 170 K/uL (130-400) 03/16/17 06:06 MPV 10.3 fL (7.2-11.7) 03/16/17 06:06 Neut % (Auto) 47.6 % (50.0-75.0) L 03/16/17 06:06 Lymph % (Auto) 33.8 % (20.0-40.0) 03/16/17 06:06 [place] % (Auto) 16.1 % (0.0-10.0) H 03/16/17 06:06 Eos % (Auto) 2.0 % (0.0-4.0) 03/16/17 06:06 Baso % (Auto) 0.5 % (0.0-2.0) 03/16/17 06:06 Neut # 3.0 K/uL (1.8-7.0) 03/16/17 06:06 Lymph # 2.2 K/uL (1.0-4.3) 03/16/17 06:06 [place] # 1.0 K/uL (0.0-0.8) H 03/16/17 06:06 Eos # 0.1 K/uL (0.0-0.7) 03/16/17 06:06 Baso # 0.0 K/uL (0.0-0.2) 03/16/17 06:06 ESR 15 mm/hr (0-15) 03/16/17 06:06 PT 11.8 SECONDS (9.7-12.2) 03/15/17 05:31 INR 1.1 03/15/17 05:31 APTT 35 SECONDS (21-34) H 03/15/17 05:31 D-Dimer, Quantitative < 200 ng/mlDDU (0-243) 03/15/17 07:07 Sodium 132 mmol/L (132-148) 03/16/17 06:06 Potassium 4.0 mmol/L (3.6-5.2) 03/16/17 06:06 Chloride 106 mmol/L (98-107) 03/16/17 06:06 Carbon Dioxide 22 mmol/L (22-30) 03/16/17 06:06 Anion Gap 9 (10-20) L 03/16/17 06:06 BUN 13 mg/dL (9-20) 03/16/17 06:06 Creatinine 1.0 mg/dL (0.8-1.5) 03/16/17 06:06 Est GFR ( Amer) > 60 03/16/17 06:06 Est GFR (Non-Af Amer) > 60 03/16/17 06:06 Random Glucose 93 mg/dL (75-110) 03/16/17 06:06 Hemoglobin A1c 5.2 % (4.2-6.5) 03/15/17 08:39 Calcium 8.4 mg/dl (8.6-10.4) L 03/16/17 06:06 Phosphorus 2.7 mg/dL (2.5-4.5) 03/16/17 06:06 Magnesium 1.7 mg/dL (1.6-2.3) 03/16/17 06:06 Total Bilirubin 1.0 mg/dL (0.2-1.3) 03/16/17 06:06 AST 57 U/L (17-59) 03/16/17 06:06 ALT 35 U/L (21-72) 03/16/17 06:06 Alkaline Phosphatase 48 U/L (38-126) 03/16/17 06:06 Lactate Dehydrogenase 572 U/L (313-618) 03/16/17 06:06 Total Creatine Kinase 237 U/L (55-170) H 03/15/17 16:56 CK-MB (Mass) 11.1 ng/mL (0.0-3.38) H 03/15/17 16:56 Troponin I 3.0400 ng/mL (0.00-0.120) H* 03/15/17 16:56 C-React Prot High Sens 12.69 mg/L (1.00-3.00) H 03/16/17 06:06 NT-Pro-B Natriuret Pep 309 pg/mL (0-450) 03/15/17 07:46 Total Protein 6.5 g/dL (6.3-8.3) 03/16/17 06:06 Albumin 3.7 g/dL (3.5-5.0) 03/16/17 06:06 Globulin 2.9 gm/dL (2.2-3.9) 03/16/17 06:06 Albumin/Globulin Ratio 1.3 (1.0-2.1) 03/16/17 06:06 Triglycerides 197 mg/dL (0-149) H 03/15/17 07:46 Cholesterol 183 mg/dL (0-199) 03/15/17 07:46 LDL Cholesterol Direct 107 mg/dL (0-129) 03/15/17 07:46 HDL Cholesterol 26 mg/dL (30-70) L 03/15/17 07:46 Free T4 0.92 ng/dL (0.78-2.19) 03/15/17 08:52 TSH 3rd Generation 0.85 mIU/L (0.46-4.68) 03/16/17 06:06 Urine Color Yellow (YELLOW) 03/15/17 06:56 Urine Clarity Clear (Clear) 03/15/17 06:56 Urine pH 5.0 (5.0-8.0) 03/15/17 06:56 Ur Specific [place] 1.023 (1.003-1.030) 03/15/17 06:56 Urine Protein Negative mg/dL (NEGATIVE) 03/15/17 06:56 Urine Glucose (UA) Normal mg/dL (Normal) 03/15/17 06:56 Urine Ketones Negative mg/dL (NEGATIVE) 03/15/17 06:56 Urine Blood Negative (NEGATIVE) 03/15/17 06:56 Urine Nitrate Negative (NEGATIVE) 03/15/17 06:56 Urine Bilirubin Negative (NEGATIVE) 03/15/17 06:56 Urine Urobilinogen 2.0 mg/dL (0.2-1.0) 03/15/17 06:56 Ur Leukocyte Esterase Neg Nia/uL (Negative) 03/15/17 06:56 Urine WBC (Auto) 2 /hpf (0-5) 03/15/17 06:56 Urine RBC (Auto) < 1 /hpf (0-3) 03/15/17 06:56 Urine Opiates Screen Negative (NEGATIVE) 03/15/17 06:56 Urine Methadone Screen Negative (NEGATIVE) 03/15/17 06:56 Ur Barbiturates Screen Negative (NEGATIVE) 03/15/17 06:56 Ur Phencyclidine Scrn Negative (NEGATIVE) 03/15/17 06:56 Ur Amphetamines Screen Negative (NEGATIVE) 03/15/17 06:56 U Benzodiazepines Scrn Negative (NEGATIVE) 03/15/17 06:56 U Oth Cocaine Metabols Positive (NEGATIVE) H 03/15/17 06:56 U Cannabinoids Screen Positive (NEGATIVE) H 03/15/17 06:56 IVA 6 Profile Positive (NEGATIVE) H 03/16/17 06:06 IVA Titer 1:40 H 03/16/17 06:06 IVA Pattern Speckled H 03/16/17 06:06 HIV 1&2 Antibody Screen Negative (NEGATIVE) 03/16/17 06:06 Influenza Typ A,B (EIA) Negative for flu a/b (NEGATIVE) 03/15/17 07:07 Anti-Staphylolysin O Positive (NEGATIVE) H 03/16/17 06:06 Anti-Streptolysin Titr =>200 iu/ml (NEGATIVE) 03/16/17 06:06 - Hospital Course Hospital Course: PMD: None Consults: Cardiology: Dr. Burger. PRINCIPAL DISCHARGE DIAGNOSES: CC: AMS HISTORY OF PRESENT ILLNESS:This 32 year old M with no PMHx presents complaining of chest pain while trying to fall asleep last night. The pain started as a constant, dull /aching discomfort with subsequent radiation to the L arm. The L arm radiation lasted for roughly 1 hour last night, however the chest pain persisted into this morning, prompting him to come to the ED. He states it feels as if there is a 20lb weight on his chest. After receiving ASA 325 in the ED, he reports the chest pain resolved. He admits to using 1 bag of cocain roughly 2 days ago; he historically uses Cocain intranasal, 1bag every 2-3mo x7yrs. He is not currently in any pain and denies any additional acute complaints. ED Course: EKG reviewed with Dr. Burger, likely Pericarditis 2/[address] elevations and reciprocal aVR, incited by cocain use. Plan for cardiac cath in AM. Patient experienced a second episode of chest pain after eating lunch, not relieved with nitro. Chest pain resolved with administration of ASA 650mg. Patient accepted to ICU for tele monitoring. SUMMARY OF COURSE: Clemente Dykes is a 32 year old male wh was admitted to [facility] ([facility]3] on 03/13/17-03/17/17 for chest pain. While at the hospital he was given medications, had blood drawn and had imaging done.. While at the hospital, he was given fluids, and had diagnostic lab tests and imaging done. While admitted the patient was found to have abnormal torponin levels. The patient subsequently had a cardiac catherization done. The cath came back negative with normal coronaries per Cardiology. Further reccomendations from Cardiology included ASA 325mg PO Daily for 6weeks and Tylenol PRN as needed. Patient was provided with Narcotics Anonymous information upon discharge. Patient advised to follow up at [facility] to establish primary care. Imaging: Chest xray: no active disease Echocardiogram: EF 60-65%, mild mitral regurgitation, mild tricuspid regurgitation, left ventricle systolic function is normal. DISCHARGE MEDICATIONS: Prescription for Aspirin placed inside the chart. Please make sure patient has information for Narcotics Anonymous before his discharge. Please provide him with the following instructions: 1). Please schedule follow up with [facility] located at [facility] ([facility]3] Floor B. Call [phone] for an appointment to take place in the next 7 to 10 days. This clinic can be your primary care physician. 2). You were provided with the following prescription and take as directed: Aspirin 325 mg, 1 tablet by mouth 1x/day for 42 days starting on 03/18/17, Disp # 42, NO refills. 3). Follow up with Narcotics Anonymous. Information provided to you by [employer]. 4). Please take care of your self. There is a lot of life out there for you. Discharge Exam - Head Exam Head Exam: ATRAUMATIC, NORMAL INSPECTION, NORMOCEPHALIC - Eye Exam Eye Exam: EOMI, Normal appearance, PERRL. absent: Periorbital tenderness Pupil Exam: NORMAL ACCOMODATION, PERRL. absent: Irregular, Unequal - ENT Exam ENT Exam: Mucous Membranes Moist, Normal Oropharynx - Respiratory Exam Respiratory Exam: Clear to PA & Lateral, NORMAL BREATHING PATTERN, UNREMARKABLE. absent: Decreased Breath Sounds, Rales, Rhonchi - Cardiovascular Exam Cardiovascular Exam: REGULAR RHYTHM, RRR, +S1, +S2. absent: Gallop, Rubs - GI/Abdominal Exam GI & Abdominal Exam: Normal Bowel Sounds, Unremarkable. absent: Hypoactive Bowel Sounds, Organomegaly - Extremities Exam Extremities exam: full ROM - Back Exam Back exam: NORMAL INSPECTION. absent: CVA tenderness (L), CVA tenderness (R), paraspinal tenderness - Neurological Exam Neurological exam: Alert, CN II-XII Intact, Normal Gait, Oriented x3 - Psychiatric Exam Psychiatric exam: Normal Affect, Normal Mood - Skin Skin Exam: Dry, Intact, Normal Color Discharge Plan - Discharge Medications Prescriptions: Aspirin 325 mg PO DAILY 42 Days #42 tab - Follow Up Plan Condition: FAIR Disposition: HOME/ ROUTINE Instructions: Aspirin (By mouth), Myocardial Infarction (DC), Chest Pain (DC), Heart Healthy Diet (DC), Heart Catheterization (DC) Additional Instructions: 1). Please schedule follow up with [facility] located at [facility]3] Floor [address]. Call [phone] for an appointment to take place in the next 7 to 10 days. This clinic can be your primary care physician. 2). You were provided with the following prescription and take as directed: Aspirin 325 mg, 1 tablet by mouth 1x/day for 42 days starting on 03/18/17, Disp # 42, NO refills. 3). Follow up with Narcotics Anonymous. Information provided to you by Clinical Research Specialist. 4). Please take care of your self. There is a lot of life out there for you. Thai Jose D.O. Referrals: [facility] at [facility] [Outside]
[2017-03-17 15:33] VITALS: PULSE 85
== END 2017-03-17 15:46 | disposition home or self-care (01) | DRG 125 ==
LOC: C.ER 04:47 → C.9E 06:21 → C.6T 15:03 → C.9E 16:58 → C.9I 18:30 → C.6T 03-17 01:25
PROVIDERS: ADMIT Family Medicine; ATTEND Family Medicine
PROC: 4A023N7 Measurement of Cardiac Sampling and Pressure, Left Heart, Percutaneous Approach (ICD-10-PCS; principal; 2017-03-16)
PROC: B2151ZZ Fluoroscopy of Left Heart using Low Osmolar Contrast (ICD-10-PCS; 2017-03-16)
PROC: B2111ZZ Fluoroscopy of Multiple Coronary Arteries using Low Osmolar Contrast (ICD-10-PCS; 2017-03-16)
DX: I51.4 Myocarditis, unspecified (principal); I31.9 Disease of pericardium, unspecified; F14.10 Cocaine abuse, uncomplicated; F12.10 Cannabis abuse, uncomplicated; R79.89 Other specified abnormal findings of blood chemistry; F17.210 Nicotine dependence, cigarettes, uncomplicated

== ENCOUNTER 2017-07-29 10:47 | Emergency (ER) | payer MEDICAID, OTHER ==
[2017-07-29 10:55] VITALS: BP 118/77; PULSE 65; RESP 18; TEMP 97.7; O2SAT 99
[2017-07-29] MEDS ORDERED: Albuterol 0.083% Inhal Sol (2.5 mg/3 mL) UD IH STA (11:23)
--- NOTE | 2017-07-29 11:25 | C.PDOC ---
History Of Present Illness 32 y/o male presents to ED for evaluation of left ear decreased acuity since this morning. Patient admits to sleeping in front of Air conditioner last night. Otherwise, denies recent illness, fever, headache, dizziness, vertigo, ear discharge, runny nose, sore throat, neck pain, denies any other complaints at this time. Ambulate to Ed for evaluation, not in any apparent distress. Time Seen by Provider: 07/29/17 11:08 Chief Complaint (Nursing): ENT Problem History Per: Patient History/Exam Limitations: None Onset/Duration Of Symptoms: Days Current Symptoms Are (Timing): Still Present Past Medical History Reviewed: Historical Data, Nursing Documentation, Vital Signs Vital Signs: Last Vital Signs Temp 97.7 F 07/29/17 10:53 Pulse 65 07/29/17 10:53 Resp 18 07/29/17 10:53 BP 118/77 07/29/17 10:53 Pulse Ox 99 07/29/17 11:37 - Medical History PMH: No Chronic Diseases Surgical History: No Surg Hx - [facility] Procedures FLUOROSCOPY OF LEFT HEART USING LOW OSMOLAR CONTRAST (03/15/17) FLUOROSCOPY OF MULT COR ART USING L OSM CONTRAST (03/15/17) MEASURE OF CARDIAC SAMPL & PRESSURE, L HEART, PERC APPROACH (03/15/17) Family History: States: No Known Family Hx - Social History Hx Alcohol Use: Yes Hx Substance Use: No - Immunization History Hx Tetanus Toxoid Vaccination: No Hx Influenza Vaccination: No Hx Pneumococcal Vaccination: No Review Of Systems Constitutional: Negative for: Fever, Chills ENT: Positive for: Other (decreased acuity to left ear). Negative for: Ear Discharge Skin: Negative for: Rash Neurological: Negative for: Headache Physical Exam - Physical Exam Appears: Well, Non-toxic, No Acute Distress Skin: Normal Color, Warm, Dry, No Rash Eye(s): bilateral: PERRL Ear(s): Left: TM Obscured By Wax, Right: Normal Nose: No Flaring, No Discharge Oral Mucosa: Moist, No Drooling, No Trismus Tongue: Normal Appearing Lips: Normal Appearing Throat: No Drooling Neck: Trachea Midline, Supple Cardiovascular: Rhythm Regular Respiratory: No Decreased Breath Sounds, No Accessory Muscle Use, No Stridor, No Wheezing Gastrointestinal/Abdominal: Soft, No Tenderness, No Distention, No Guarding Back: No CVA Tenderness Extremity: Normal ROM, No Deformity, No Swelling Neurological/Psych: Oriented x3, Normal Speech ED Course And Treatment O2 Sat by Pulse Oximetry: 99 (RA) Pulse Ox Interpretation: Normal Progress Note: On re-evaluation, pt is afebrile, hemodynamicaly stable. Non- toxic. Ambulatory in Ed with stable gait. PulsEOx 99% RA. ENT: exam c/w left cerumen impaction, No edmea, no ear discahrges, no mastoid tenderness. neck: Supple, (-) meningeal sign. Lungs: CTA B/L, BS equal B/L. Abd: benign. Neuorlogicaly intact. Pt advised. ref. to f/u with ENT in 2-3 days for re- eval. return to ED if any worsening or new changes. Disposition Counseled Patient/Family Regarding: Diagnosis, Need For Followup, Rx Given - Disposition Referrals: Roberto Dejesus MD [Staff Provider] - Disposition: HOME/ ROUTINE Disposition Time: 11:29 Condition: STABLE Prescriptions: Carbamide Peroxide [Debrox 15 Ml] 3 drop DAILY #1 bottle Instructions: Ear Wax Impaction Forms: [employer] ([place]) - Clinical Impression Clinical Impression: Cerumen impaction - PA / CH[facility]ARE CENTER ASSISTANT DIRECTOR / Resident Statement MD/DO has reviewed & agrees with the documentation as recorded. - Scribe Statement The provider has reviewed the documentation as recorded by the Scribmary Christensen All medical record entries made by the Scribe were at my direction and personally dictated by me. I have reviewed the chart and agree that the record accurately reflects my personal performance of the history, physical exam, medical decision making, and the department course for this patient. I have also personally directed, reviewed, and agree with the discharge instructions and disposition.
== END 2017-07-29 11:42 | disposition home or self-care (01) ==
LOC: C.ER 10:47
DX: H61.22 Impacted cerumen, left ear (principal)